=== PATIENT | female | born 1945 | race Caucasian/White ===

== ENCOUNTER 2023-01-14 11:21 | Emergency (ER) | payer MEDICARE, OTHER, SELFPAY ==
[2023-01-14 11:22] VITALS: BP 166/72; PULSE 102; RESP 16; TEMP 36.6; O2SAT 100; BMI 28.3
--- NOTE | 2023-01-14 11:33 | EDS_ITS ---
HPI <EV Walls - Last Filed: 01/14/23 12:08> History of Present Illness Chief Complaint: Ear Problem Narrative Narrative: Patient presenting today due to bleeding from her right ear that started this morning. She reports that she was lying down in bed when she heard a high- pitched noise and crackling sound in her right ear, she felt discharge and pain in her ear and noticed that her ear was bleeding. She reports that the bleeding has come and go since. She is on Plavix, no other blood thinners. She had tubes placed to her bilateral ears by Dr. Gary due to requiring hyperbaric oxygen therapy for a toe wound. Reports that since having the tubes placed she has had muffled hearing in both the ears. She denies any trauma to her head/ear and loss of hearing. PFSH <EV Walls - Last Filed: 01/14/23 12:08> PFSH Allergy/AdvReac Type Severity Reaction Status Date / Time egg Allergy Mild MYALGIA Verified 01/14/23 11:24 sulfamethoxazole Allergy Mild Rash Verified 01/14/23 11:24 [From Bactrim] trimethoprim [From Bactrim] Allergy Mild Rash Verified 01/14/23 11:24 pentazocine [From Talwin] AdvReac Mild Other Verified 01/14/23 11:24 Social History Smoking Status: Never smoker ROS <EV Walls - Last Filed: 01/14/23 12:08> ROS ED Constitutional Constitutional ED: Denies chills or fever(s) ENT ENT ED: Reports ear pain right Cardiovascular Cardiovascular: Denies chest pain Respiratory/Chest Respiratory/Chest: Denies cough or dyspnea Gastrointestinal Gastrointestinal: Denies abdominal pain, nausea or vomiting Musculoskeletal Musculoskeletal: Denies arthralgias or myalgias Neurologic Neurologic: Denies weakness EXAM <EV Walls - Last Filed: 01/14/23 12:08> Physical Exam Const Vital Signs: 01/14/23 11:22 Temperature 97.9 F Temperature Source Temporal Pulse Rate 102 H Respiratory Rate 16 Blood Pressure 166/72 H Blood Pressure Mean 103 Pulse Ox 100 Oxygen Delivery Method Room Air Positive well nourished, well developed and no apparent distress General Appearance ED: well developed HEENT Reports normocephalic and head/scalp atraumatic HEENT Narrative: Left TM clear, right external auditory canal unremarkable, blood surrounding the right TM, tube at the 12 o'clock position, no obvious perforation but examination is limited due to the surrounding blood. Mouth ED: Yes moist mucous membranes normal Eyes PERRL and EOMs intact bilaterally Neck full ROM and supple Chest Wall inspection of chest normal Resp normal respiratory effort and clear to auscultation bilaterally Cardio regular rate and regular rhythm GI soft to palpation, non-tender, non-distended and no masses Back/Spine normal ROM and normal to inspection Extremity normal to inspection and full ROM Neuro oriented x3, CN's II-XII intact bilaterally, moves all extremities, no focal motor deficits and no sensory deficits noted Sensorium / Orientation: awake and alert Psych mental status grossly normal and thought process normal Skin no rashes or lesions noted and no wounds <Dr. Momo Giraldo MD - Last Filed: 01/14/23 11:50> Physical Exam Const Vital Signs: 01/14/23 11:22 Temperature 97.9 F Temperature Source Temporal Pulse Rate 102 H Respiratory Rate 16 Blood Pressure 166/72 H Blood Pressure Mean 103 Pulse Ox 100 Oxygen Delivery Method Room Air MDM <EV Walls - Last Filed: 01/14/23 12:08> [facility] Narrative Medical decision making narrative: Patient presenting today due to bleeding from her right ear that started this morning. She heard a high-pitched noise, crackling, and had pain from her ear and noticed that she had blood coming from the ear. No obvious perforation is seen on exam but examination is limited due to the blood surrounding the TM. No active bleeding. She is to follow-up with her ENT doctor. She will be discharged home in stable condition and is comfortable with plan. I have personally performed a face to face assessment of the patient and have reviewed the [place] Note. I performed a substantive portion of the visit including all aspects of the following. My walters findings include: History is [77-year-old female complaining of blood from her right ear. Underwent hyperbaric treatments for a foot infection. Had ear tubes placed within the last year. Denies any trauma. Denies any fever. No recent significant ear pain. She has had decreased hearing in the right ear since he placed the ear tube.] Exam is [appearing 77-year-old female. Vital signs stable afebrile. H EENT ex am right TM has blood in the canal. You can see the blue ear tube on the 12 o'clock position of the eardrum. I do not see any obvious perforation. The canal itself is unremarkable. I suspect there is a perforation we cannot see it. Pharynx normal. Lungs clear. Heart regular rhythm. Otherwise exam unremarkable.] Medical Decision Making [from the right ear. Suspect perforation.] Other additions or changes: [None] <Dr. Momo Giraldo MD - Last Filed: 01/14/23 11:50> [facility] MDM Narrative Medical decision making narrative: Patient presenting today due to bleeding from her right ear that started this morning. She heard a high-pitched noise, crackling, and had pain from her ear and noticed that she had blood coming from the ear. I have personally performed a face to face assessment of the patient and have reviewed the [facility] Note. I performed a substantive portion of the visit including all aspects of the following. My walters findings include: History is [77-year-old female complaining of blood from her right ear. Underwent hyperbaric treatments for a foot infection. Had ear tubes placed within the last year. Denies any trauma. Denies any fever. No recent significant ear pain. She has had decreased hearing in the right ear since he placed the ear tube.] Exam is [appearing 77-year-old female. Vital signs stable afebrile. H EENT exam right TM has blood in the canal. You can see the blue ear tube on the 12 o'clock position of the eardrum. I do not see any obvious perforation. The canal itself is unremarkable. I suspect there is a perforation we cannot see it. Pharynx normal. Lungs clear. Heart regular rhythm. Otherwise exam unremarkable.] Medical Decision Making [from the right ear. Suspect perforation.] Other additions or changes: [None] History & Record Review Discussion w/independent historian: Patient and Significant other Discharge Plan Triage Chief Complaint: Ear Problem ED Midlevel Provider: Aria Scott ED Provider: Momo Giraldo Dx/Rx/DC Orders Clinical Impression: Perforated right tympanic membrane on examination Instructions: Ruptured Eardrum Primary Care Provider: Lashawn Walsh NP Referrals: Lashawn Walsh [employer], [employer] [Primary Care Provider] - Activity Restrictions/Additional Instructions: Please follow-up with your ENT doctor. Disposition Disposition: Home, Self Care Discharge Date/Time: 01/14/23 12:04
== END 2023-01-14 12:04 | disposition home or self-care (01) ==
LOC: ED 12:03
PROVIDERS: Emergency Provider Emergency Medicine; PCP Nurse Practitioner Family; Visit Provider Emergency Medicine
DX: H72.91 Unspecified perforation of tympanic membrane, right ear (principal); Z79.02 Long term (current) use of antithrombotics/antiplatelets; Z96.22 Myringotomy tube(s) status
CPT/HCPCS: 99282